=== PATIENT | female | born 1955 | race Caucasian/White ===

== ENCOUNTER → 2016-09-28 | Day surgery (SDC) | payer BC ==
[~2016-09-28] VITALS: Ht 165.1 cm; Wt 103.0 kg
[~2016-09-28] MED LIST: *morphine SULFATE 8 MG/ML PERIprocedure ONLY ONE; APIX2.5T PO; ATROPINE SULFATE 1% OPHT SOLN 2 ML BTL ONE; BALANCED SALT SOLN OPHT IRRIG 15 ML BTL ONE; BROM0.072 LEFT EYE; BUPIVACAINE HCL PF 0.75% 10 ML VIAL ONE; CLON.5 PO; DEXAMETHASONE SOD PHOS 20 MG/5 ML VIAL ONE; DIFL0.0512 LEFT EYE; DO NOT ADM ANY ANTICOAGULANT DRUGS XX PRN; EPINEPHrine HCL (1:1000) 30 MG/30 ML VIAL ONE; HYDR25TA5 PO; HYDROmorphone HCL PF 2 MG/ML VIAL ONE; INSULIN HUMAN REGULAR 1,000 UNITS/10 ML VIAL SQ PRN; LACTATED RINGER'S 1000 ML IV SCH; LEVO.075 PO; METOPROLOL TARTRATE 25 MG TAB PO PRN; MIDAZOLAM HCL 2 MG/2 ML VIAL ONE; ONDANSETRON HCL 4 MG/2 ML VIAL IM PRN; ONDANSETRON HCL 4 MG/2 ML VIAL ONE; OXYC1CAP PO; PRAV20TA PO; PROP225T PO; PROZ40CA PO; SODIUM CHLORID 0.9% 500 ML IV SCH; STERILE WATER FOR INJ 20 ML VIAL ONE; TOBRAMYCIN 0.3%/DEXAMETHASONE 0.1% OPHT SUSP 5 ML BTL ONE; TOBRAMYCIN/DEXAMETHASONE OPTH OINT 3.5 GM TUBE ONE; TRIAMCINOLONE ACETONIDE/PF 40 MG/ML OPTH VIAL LEFT EYE ONE; TRIAMCINOLONE ACETONIDE/PF 40 MG/ML OPTH VIAL ONE; ceFAZolin INJ 1,000 MG VIAL ONE; fentaNYL CITRATE 250 MCG/5 ML AMP ONE; oxyCODONE/ACETAMINOPHEN 5 MG/325 MG TAB PO PRN
[2016-09-28 08:22] VITALS: BP 138/75; PULSE 63; RESP 18; TEMP 97.9; O2SAT 97
[2016-09-28] MEDS: CYCLOPENTOLATE HCL 1% OPHT SOLN 2 ML BTL LEFT EYE SCH ×4 (08:24→09:09)
[2016-09-28] MEDS: TROPICAMIDE 1% OPTH SOLN 2 ML BTL LEFT EYE SCH ×4 (08:24→09:09)
[2016-09-28] MEDS: ATROPINE SULFATE 1% OPHT SOLN 5 ML BTL LEFT EYE SCH ×4 (08:24→09:09)
[2016-09-28] MEDS: PHENYLEPHRINE HCL 2.5% OPTH SOLN 2 ML BTL LEFT EYE SCH ×4 (08:24→09:09)
[2016-09-28 08:25] LABS: AUTOMATED NEUTROPHIL # 3.4 TH/MM3 (1.8-7.7); BASOPHIL % 0.5 % (0.0-2.0); EOSINOPHIL # 0.2 TH/MM3 (0-0.4); HEMATOCRIT 32.8 % (35.0-46.0); HEMO FLAGS DIFF FINAL; LYMPH % 17.7 % (9.0-44.0); LYMPHOCYTE # 0.9 TH/MM3 (1.0-4.8); MEAN CELL VOLUME 95.4 FL (80.0-100.0); MEAN CORPUSCULAR HEMOGLOBIN 33.2 PG (27.0-34.0); MEAN CORPUSCULAR HGB CONC 34.7 % (32.0-36.0); NEUT % 67.8 % (16.0-70.0); PLATELET COUNT 155 TH/MM3 (150-450); RED BLOOD COUNT 3.44 MIL/MM3 (4.00-5.30); RED CELL DISTRIBUTION WIDTH 12.7 % (11.6-17.2)
--- NOTE | 2016-09-28 10:47 | EKG ---
Date Performed: 09/28/2016 Time Performed: 08:28:54 PTAGE: 61 years EKG: SINUS BRADYCARDIA BORDERLINE ECG NO PREVIOUS TRACING DOCTOR: Chris Sweeney Interpretating Date/Time 09/28/2016 10:44:21
[2016-09-28 16:00] VITALS: BP 147/67; PULSE 62; RESP 17; TEMP 98.8; O2SAT 96
--- NOTE | 2016-09-29 11:40 | MP ---
cc: COLLEEN CALL M.D. 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 PROCEDURE: Scleral buckle procedure, trans pars plana vitrectomy with membranectomy, endolaser photocoagulation, intraoperative use of Perfluoron and instillation of 1000 centistokes silicone oil left eye. SURGEON Dr. Colleen Call. ANESTHESIA General laryngeal mass mask anesthesia. HISTORY: Ms. Vanessa cross is a 61-year-old female who supposedly had a retinal detachment with repair attempt I believe in February of this year. She was then released from the retinal surgery so it is assumed all was good but then she was seen in August for evaluation of her cataract surgery and it was found that she had re-detachment. The patient states she never saw well after her surgery. She was found to have a dense cataract as well as a total retinal detachment of the left eye and vision down to hand motions. She was sent for cataracts, since this has probably been present for at least several months. It was not thought to be urgent and she was sent for cataract surgery in her left eye so that the retinal surgery that would ensue could be done safely. The retina was in a stiff configuration so PVR was suspected and it was recommended that if she did have attempted surgical repair. She should be prepared to have a scleral buckle procedure, vitrectomy, possible silicone oil instead of gas and she indicated she would need in the near future to be flying to [place]. The risks and benefits of surgery and the oil were discussed with the patient and she wished to proceed and informed consent was obtained. She was brought to [facility] operating room one and placed on the operating table. Appropriate anesthesia monitoring devices were applied and she was placed under general anesthesia using a laryngeal mask. The left eye was identified as the operative site and then prepped and draped in the usual sterile fashion. A lid speculum was placed at this point an appropriate time-out was called with the surgical team agreeing to the surgical site and planned procedures. The conjunctiva was opened 360 degrees at the limbus using conjunctival forceps and Narendra scissors. Relaxing incisions were made at 4:00 and 9:30 o'clock the edges of the relaxing incisions were marked with 6-0 black silk. All four quadrants were opened with blunt dissection using the Narendra scissors. The four recti muscles were hooked on muscle hooks and transferred onto 4-0 black silk ties. The quadrants were inspected and the sclera appeared to be of good thickness. Next, midway between the recti muscles and 5-0 polyester Dacron mattress suture was placed to support the vitreous base. A 41 encircling band was then threaded through the mattress sutures and under the recti muscles and secured to itself with a 70 sleeve in the superior temporal quadrant. Next, a 23 gauge pars plana vitrectomy was begun with the trocar cannulas being placed 3 mm posterior to the limbus through bare sclera. The residual peripheral vitreous which had been left behind the patient's natural lens was removed. The retina was stiff and an open frontal configuration. It was noted that the patient had previous 360 degrees peripheral laser and that area was still attached. However, the funnel then ensued back to the posterior pole. After using both the Nino's pick and 10-0 membrane scraper eventually the suspected retina appeared to be flattened under air but would not therefore BSS was infused back in the eye and another search was made for the membrane. The edge of the membrane was then found in the inferior nasal juxta foveal region and it was peeled up and then removed with a PICC forceps. The retina was then again flattened under air accepted the posterior pole which was flattened using a Perfluoron liquid. Once the retina was flat additional endolaser photocoagulation was performed around the periphery posterior to the previously placed laser and also in the inferotemporal periphery where there was a earlier retinal break. Another area chorioretinal scarring superior temporally was treated. The plugs were placed back in the eye. The buckle was then secured down and tightened and trimmed giving a good peripheral indentation 360 degrees. The Perfluoron was then removed with a soft tipped linear extrusion needle and replaced with 1000 centistokes silicone oil, an inferior diathermy was made with a vitrectomy cutter at approximately 6 o'clock. The Perfluoron had been removed and air-fluid exchange. Next, the sclerostomies were closed with a single interrupted 7-0 Vicryl. The orbit was irrigated with a mixture of 0.75% Marcaine and TobraDex liquid then the conjunctiva was brought back up into place the recti muscle ties were removed. The conjunctiva was closed along the radial relaxing incisions with 7-0 chromic. Subconjunctival actions of Ancef 125 mg in half cc, Decadron 2 mg in half cc and 1 mg of Kenalog were given sub conjunctivally at separate sites. The lid speculum was removed. Atropine drops were placed on the cornea followed by TobraDex ointment and then the left eye was patched and shielded. The patient had the laryngeal mask removed in the room and was returned to recovery in good condition with it and head elevated position. MD ANIBAL Graves/flaco /1:21 PM /11:26 AM
== END | disposition home or self-care (01) ==
LOC: HSDC 07:16
PROVIDERS: ATTEND Ophthalmology
DX: H33.002 Unspecified retinal detachment with retinal break, left eye (principal); I48.91 Unspecified atrial fibrillation; I10 Essential (primary) hypertension
CPT/HCPCS: 00145; 67113; 85025; 93005; C1814; J0171; J0690; J1100; J1170; J2250; J2270; J2405; J3010; J3300; J7120